=== PATIENT | female | born 1965 | race Caucasian/White ===

== ENCOUNTER 2018-02-24 21:07 | Emergency (ER) | payer OTHER ==
[~2018-02-24] VITALS: Ht 162.6 cm; Wt 63.5 kg
[~2018-02-24 21:07] MED LIST: NECON1 EAC4 PO
[2018-02-24 21:17] VITALS: BP 154/82
[2018-02-24] MEDS ORDERED: NORCO 5-325 TA1 EACH PO (21:56)
== END 2018-02-24 22:20 | disposition home or self-care (01) ==
LOC: ER 21:07
DX: S61.211A Laceration without foreign body of left index finger without damage to nail, initial encounter (principal); S63.682A Other sprain of left thumb, initial encounter; Z88.0 Allergy status to penicillin; V29.9XXA Motorcycle rider (driver) (passenger) injured in unspecified traffic accident, initial encounter; Y93.89 Activity, other specified; Y92.89 Other specified places as the place of occurrence of the external cause; Y99.8 Other external cause status

== ENCOUNTER 2018-02-26 10:51 | Emergency (ER) | payer OTHER ==
[~2018-02-26] VITALS: Ht 162.6 cm; Wt 63.5 kg
[~2018-02-26 10:51] MED LIST changes: +NORCO 5-325 TA1 EACH PO
[2018-02-26 11:03] VITALS: BP 165/70
== END 2018-02-26 12:26 | disposition home or self-care (01) ==
LOC: ER 10:51
DX: R22.32 Localized swelling, mass and lump, left upper limb (principal); Z88.1 Allergy status to other antibiotic agents

== ENCOUNTER 2020-05-25 21:43 | Emergency (ER) | payer OTHER ==
[~2020-05-25] VITALS: Ht 162.6 cm; Wt 62.6 kg
[2020-05-25] MEDS ORDERED: XULANE PATCH1 EACH TOP (21:45)
[2020-05-26 00:43] VITALS: BP 117/67
== END 2020-05-26 00:20 | disposition home or self-care (01) ==
LOC: ER 21:43
DX: S81.811A Laceration without foreign body, right lower leg, initial encounter (principal); Z79.899 Other long term (current) drug therapy; Z88.1 Allergy status to other antibiotic agents; W25.XXXA Contact with sharp glass, initial encounter; Y93.89 Activity, other specified; Y92.098 Other place in other non-institutional residence as the place of occurrence of the external cause; Y99.8 Other external cause status

== ENCOUNTER 2020-10-08 16:55 | Emergency (ER) | payer OTHER ==
[~2020-10-08] VITALS: Ht 160 cm; Wt 52.2 kg
[~2020-10-08 16:55] MED LIST changes: +XULANE PATCH1 EACH TOP
[2020-10-08 18:15] VITALS: BP 130/70
== END 2020-10-08 18:18 | disposition home or self-care (01) ==
LOC: ER 16:55
DX: S61.012A Laceration without foreign body of left thumb without damage to nail, initial encounter (principal); Z79.899 Other long term (current) drug therapy; Z88.1 Allergy status to other antibiotic agents; W26.0XXA Contact with knife, initial encounter; Y93.89 Activity, other specified; Y92.89 Other specified places as the place of occurrence of the external cause; Y99.8 Other external cause status